=== PATIENT | male | born 1980 | race Two or more races ===

== ENCOUNTER 2019-02-15 05:41 | Emergency (ER) | payer SELFPAY ==
[~2019-02-15] VITALS: Ht 175.3 cm; Wt 68.2 kg
[2019-02-15 05:43] VITALS: Ht 175.3 cm; Wt 68.2 kg
[2019-02-15] MEDS ORDERED: IBUPROFEN800 MG PO (08:38)
[2019-02-15] MEDS ORDERED: CYCLOBENZAPRINE10 MG PO (08:38)
[2019-02-15] MEDS ORDERED: ACETAMINOPHEN500 M1 PO (08:38)
[2019-02-15 09:28] VITALS: BP 143/97
== END 2019-02-15 09:28 | disposition home or self-care (01) ==
LOC: D.ER 05:41
DX: S00.83XA Contusion of other part of head, initial encounter (principal); T14.8XXA Other injury of unspecified body region, initial encounter; S00.11XA Contusion of right eyelid and periocular area, initial encounter; H11.31 Conjunctival hemorrhage, right eye; F17.200 Nicotine dependence, unspecified, uncomplicated